=== PATIENT | female | born 1990 | race African-American/Black ===

== ENCOUNTER 2020-07-12 18:39 | Emergency (ER) | payer MEDICAID ==
[~2020-07-12] VITALS: Ht 167.6 cm; Wt 100.0 kg
[2020-07-12] MEDS ORDERED: LORAZEPAM 2MG/ML CPJ IM ONE (18:45)
[2020-07-12] MEDS ORDERED: OLANZAPINE 10 MG/VIAL IM ONE (18:45)
[2020-07-12] MEDS ORDERED: SODIUM CHLORIDE 0.9% 1,000 ML IV ONE ×2 (18:45→23:30)
[2020-07-12] MEDS ORDERED: LORAZEPAM 2MG/ML CPJ IV ONE ×3 (20:00→22:15)
[2020-07-12 20:14] LABS: BASOPHILS % 0.6 % (0.0-2.0); CHLORIDE 108 mEq/L (98-107); HEMATOCRIT. 34.2 % (36.0-48.0); HEMOGLOBIN. 11.6 g/dL (12.0-16.0); LYMPHOCYTES % 26.5 % (20.0-50.0); MEAN CORPUSCULAR HEMOGLOBIN 29.5 pg (28.0-32.0); MEAN CORPUSCULAR VOLUME 87.1 fL (81.0-99.0); MEAN PLATELET VOLUME 7.6 fl (7.4-10.4); MONOCYTES % 10.4 % (2.0-8.0); NEUTROPHILS % 61.5 % (40.0-76.0); PLATELET 298 x1000/uL (130-400); RED BLOOD CELL COUNT 3.93 mill/uL (4.2-5.4); RED CELL DISTRIBUTION WIDTH 14.5 % (11.6-14.6)
[2020-07-12 20:18] LABS: ETHANOL BLOOD < 10 mg/dL
[2020-07-12 20:22] LABS: HCG SCREEN NEGATIVE
[2020-07-12] MEDS ORDERED: DIPHENHYDRAMINE 50MG/ML VIAL IV ONE (21:00)
[2020-07-12] MEDS ORDERED: HALOPERIDOL LACTATE 5MG/ML VIAL IM ONE (21:30)
[2020-07-12] MEDS ORDERED: KETAMINE HCL 50 MG/ML 10ML IM ONE (22:45)
[2020-07-12 23:59] LABS: CHLORIDE 112 mEq/L (98-107)
[2020-07-13 00:07] LABS: CREATINE KINASE 477 IU/L (26-192)
[2020-07-13 00:10] LABS: *COCAINE SCREEN URINE NEGATIVE (NEGATIVE)
[2020-07-13 00:11] LABS: *BARBITURATES SCREEN URINE NEGATIVE (NEGATIVE); *BENZODIAZEPINES SCREEN URINE NEGATIVE (NEGATIVE); METHADONE URINE SCREEN NEGATIVE (NEGATIVE); OPIATES URINE SCREEN NEGATIVE (NEGATIVE); PHENCYCLIDINE URINE SCREEN NEGATIVE (NEGATIVE)
[2020-07-13 00:14] LABS: *AMPHETAMINES SCREEN URINE PRESUMTIVE POSITIVE (NEGATIVE); CANNABINOID URINE SCREEN PRESUMTIVE POSITIVE (NEGATIVE)
[2020-07-13] MEDS ORDERED: DEXT 5%/0.45% NACL KCL 20MEQ/L 1,000 ML IV ONE (00:15)
[2020-07-13 00:20] LABS: CLARITY URINE CLOUDY (CLEAR); COLOR URINE YELLOW (YELLOW); KETONES URINE NEGATIVE (NEGATIVE); LEUKOCYTE ESTERASE URINE 2+ (NEGATIVE); NITRITE URINE POSITIVE (NEGATIVE); OCCULT BLOOD URINE NEGATIVE (NEGATIVE); PROTEIN URINE TRACE (NEGATIVE); SPECIFIC GRAVITY URINE 1.017 (1.005-1.030); UROBILINOGEN URINE 0.2 E.U./dL (0.2-1.0)
[2020-07-13] MEDS ORDERED: CEFTRIAXONE 1 G PREMIX 50 ML IV ONE (01:00)
[2020-07-13] MEDS ORDERED: ZIPRASIDONE MESYLATE 20MG/VIAL IM ONE (02:45)
[2020-07-13] MEDS ORDERED: KETAMINE HCL 50 MG/ML 10ML IM ONE (04:00)
[2020-07-14] MEDS ORDERED: SULFAMETHOXAZOLE/TRIMETHOPRIM 800/160MG TABLET PO SCH (09:15)
[2020-07-14] MEDS ORDERED: NITROFURANTOIN 100MG M/M CAPSULE PO SCH (16:30)
[2020-07-14] MEDS ORDERED: LORAZEPAM 1MG TABLET PO ONE (17:30)
[2020-07-14 20:54] VITALS: BP 135/82
== END 2020-07-14 21:01 ==
LOC: ER 18:49
DX: T43.621A Poisoning by amphetamines, accidental (unintentional), initial encounter (principal); G92 Toxic encephalopathy; F23 Brief psychotic disorder; F91.8 Other conduct disorders; N39.0 Urinary tract infection, site not specified; R45.851 Suicidal ideations; Z78.1 Physical restraint status; Z59.0 Homelessness; Y92.512 Supermarket, store or market as the place of occurrence of the external cause
CPT/HCPCS: 36415; 80048; 80053; 80305; 80307; 80320; 80329; 81003; 82550; 84703; 85025; 87077; 87086; 87186; 87426; 87635; 93005; 96365; 96372; 96375; 96376; 99285; C9803; J0696; J1200; J1630; J2060; J3486; J3490; J7030; Z7610; G0480